=== PATIENT | male | born 1940 | race Caucasian/White ===

== ENCOUNTER 2016-08-10 07:53 | Day surgery (SDC) | payer OTHER, BC ==
[2016-08-09 14:35] VITALS: BMI 30.1
[2016-08-10] MEDS ORDERED: PROPOFOL 20 ML ONE ×4 (08:59)
[2016-08-10 09:50] VITALS: TEMP 97.4
[2016-08-10 12:35] VITALS: BP 119/73; PULSE 69
--- NOTE | 2016-08-11 12:37 | PATH ---
Surgical Pathology Report Patient Name: BHAVNA JACKSON [facility]. Rec. #: [id number] /Age/Gender: 1940 (Age: 76) / M Account: [id number] [facility] Taken: 08/10/2016 Received: 08/10/2016 Reported: 08/11/2016 Physicians: Azam Sandoval D.O. Specimen(s) Received A: BX CECAL POLYP SCAR B: BX CECAL POLYP C: BX RT COLON POLYPS X3 Clinical History History of colon polyp Diverticulosis, polyps, hemorrhoids Final Diagnosis A. COLON, CECAL POLYP SCAR, BIOPSY: COLONIC MUCOSA WITH FOCAL LAMINA PROPRIA FIBROSIS. NO ADENOMATOUS CHANGE IS IDENTIFIED. B. COLON, CECUM, BIOPSY: COLONIC MUCOSA WITH NO PATHOLOGIC CHANGES. NO ADENOMATOUS OR HYPERPLASTIC CHANGES IDENTIFIED. C. COLON, RIGHT, BIOPSY: TUBULAR ADENOMA. Comment: Also see prior specimen [id number]. Electronically Signed Tru Do M.D. Gross Description A. Received in formalin, labeled "biopsy cecal polyp scar " are 2 whitney, irregular portions of soft tissue measuring 0.1 and 0.2 cm. in greatest dimension. The specimens are submitted in toto in one cassette. B. Received in formalin, labeled "biopsy cecal polyp" are 2 whitney, irregular portions of soft tissue measuring 0.1 and 0.3 cm. in greatest dimension. The specimens are submitted in toto in one cassette. C. Received in formalin, labeled "biopsy right colon polyps" are 4 whitney, irregular portions of soft tissue ranging from 0.2-0.3 cm. in greatest dimension. The specimens are submitted in toto in one cassette. /08/10/2016 saudi08/10/2016
== END 2016-08-10 10:40 | disposition home or self-care (01) ==
LOC: JASU-ENDO 07:53
PROVIDERS: ATTEND Internal Medicine Gastroenterology
PROC: 0DBF8ZX Excision of Right Large Intestine, Via Natural or Artificial Opening Endoscopic, Diagnostic (ICD-10-PCS; 2016-08-10)
PROC: 0DBH8ZX Excision of Cecum, Via Natural or Artificial Opening Endoscopic, Diagnostic (ICD-10-PCS; principal; 2016-08-10 09:00)
DX: Z12.11 Encounter for screening for malignant neoplasm of colon (principal); Z83.71 Family history of colonic polyps; K63.5 Polyp of colon; K57.30 Diverticulosis of large intestine without perforation or abscess without bleeding
CPT/HCPCS: 88305-TC

== ENCOUNTER 2018-09-14 09:43 | Day surgery (SDC) | payer OTHER, BC ==
[2018-09-13 12:25] VITALS: BMI 29.2
[2018-09-14 12:28] VITALS: TEMP 97.5
[2018-09-14 13:18] VITALS: BP 127/75; PULSE 69
--- NOTE | 2018-09-15 16:37 | PATH ---
Surgical Pathology Report Patient Name: BHAVNA AJCKSON [facility]. Rec. #: [id number] /Age/Gender: 1940 (Age: 78) / M Account: [id number] Location: [facility] Taken: 09/14/2018 Received: 09/14/2018 Reported: 09/15/2018 Physicians: Azam Sandoval D.O. Specimen(s) Received A: DESCENDING COLON POLYP B: SPLENIC FLEXURE POLYP C: SIGMOID COLON POLYP Clinical History History of colon polyps Postoperative diagnosis: Colon polyps, diverticulosis, internal hemorrhoids Final Diagnosis A. DESCENDING COLON, POLYP, POLYPECTOMY: TUBULAR ADENOMA. B. SPLENIC FLEXURE, POLYP, POLYPECTOMY: TUBULAR ADENOMA. C. SIGMOID COLON, POLYP, BIOPSY: HYPERPLASTIC POLYP. Electronically Signed Sujatha Levine M.D. Gross Description A. Received in formalin, labeled "descending colon polyp" is a whitney, irregular portion of soft tissue measuring 0.3 cm. in greatest dimension. The specimen is submitted in toto in one cassette. B. Received in formalin, labeled "splenic flexure polyp" are 3 whitney, irregular portions of soft tissue ranging from 0.1-0.3 cm. in greatest dimension. The specimens are submitted in toto in one cassette. C. Received in formalin, labeled "sigmoid colon polyp biopsy" is a whitney, irregular portion of soft tissue measuring 0.4 cm. in greatest dimension. The specimen is submitted in toto in one cassette. /09/14/2018 saudi09/14/2018
== END 2018-09-14 13:20 | disposition home or self-care (01) ==
LOC: JASU-SURG 09:43
PROVIDERS: ATTEND Internal Medicine Gastroenterology
PROC: 0DBL8ZX Excision of Transverse Colon, Via Natural or Artificial Opening Endoscopic, Diagnostic (ICD-10-PCS; 2018-09-14)
PROC: 0DBN8ZX Excision of Sigmoid Colon, Via Natural or Artificial Opening Endoscopic, Diagnostic (ICD-10-PCS; 2018-09-14)
PROC: 0DBM8ZX Excision of Descending Colon, Via Natural or Artificial Opening Endoscopic, Diagnostic (ICD-10-PCS; principal; 2018-09-14 09:45)
DX: Z12.11 Encounter for screening for malignant neoplasm of colon (principal); K57.30 Diverticulosis of large intestine without perforation or abscess without bleeding; D12.4 Benign neoplasm of descending colon; D12.5 Benign neoplasm of sigmoid colon; D12.3 Benign neoplasm of transverse colon; K64.8 Other hemorrhoids
CPT/HCPCS: 88305-TC

== ENCOUNTER 2020-03-18 15:28 | Emergency (ER) | payer OTHER, BC ==
[2020-03-18] MEDS ORDERED: DIPHTH,PERTUSS(ACELL),TET 0.5 ML DISP.SYRIN IM ONE ×2 (15:52→15:59)
--- NOTE | 2020-03-18 15:54 | PDOC ---
Rapid Medical Evaluation Time Seen by Provider: 03/18/20 15:47 Medical Evaluation: Allergies Allergy/AdvReac Type Severity Reaction Status Date / Time No Known Allergies Allergy Verified 09/10/15 11:06 03/18/20 15:54 CC: mechanical fall over divider on ground, hit face, no loc , no AC use, no headache Exam: amb, aox3, noted open wound to nasal bridge, vss plan; tdap, facial ct Discharge Disposition - Diagnosis Facial injury - Referrals - Patient Instructions - Post Discharge Activity
[2020-03-18 15:55] VITALS: BP 136/81; PULSE 80; BMI 29.8
--- NOTE | 2020-03-18 17:17 | PDOC ---
History of Present Illness - General Chief Complaint: Injury Stated Complaint: FALL Time Seen by Provider: 03/18/20 15:47 - History of Present Illness Initial Comments: 03/18/20 17:11 79-year-old male presents for evaluation after trip and fall. Patient states he tripped and fell over a cement parking stop hitting his nose on the concrete. No loss of consciousness, post injury nausea vomiting or visual changes. He denies headache. No ear pain. He does have a small laceration on his nose which he controlled with direct pressure and bilateral knee abrasions. Past History - Medical History Allergies/Adverse Reactions: Allergies Allergy/AdvReac Type Severity Reaction Status Date / Time No Known Allergies Allergy Verified 03/18/20 15:55 Home Medications: Ambulatory Orders Amlodipine Besylate [Norvasc -] 10 mg PO HS 09/10/15 Aspirin [Aspirin EC] 81 mg PO HS 09/10/15 Atorvastatin Ca [Lipitor] 20 mg PO HS 09/10/15 Multivitamin with Iron [Daily Yordan with Iron] 1 each PO DAILY 09/10/15 Vit A/Vit C/Vit E/Zinc/Copper [Preservision Tablet] 1 each PO DAILY 09/10/15 Anemia: No Asthma: No Cancer: No Cardiac Disorders: Yes (HEART MURMUR) CVA: No COPD: No CHF: No Dementia: No Diabetes: No GI Disorders: Yes (COLON POLYPS,TUBULAR ADENOMAS,DIVERTICULOSIS) Disorders: No HTN: Yes Hypercholesterolemia: Yes Liver Disease: No Seizures: No Thyroid Disease: No - Surgical History Abdominal Surgery: No Appendectomy: No Cardiac Surgery: No Cholecystectomy: No Lung Surgery: No Neurologic Surgery: No Orthopedic Surgery: Yes (R KNEE ARTHROSCOPY,L KNEE REPLACEMENT) - Psycho-Social/Smoking History Smoking History: Never smoked Have you smoked in the past 12 months: Yes Cigars Per Day: 1 'Breaking Loose' booklet given: 09/14/18 Review of Systems - Review of Systems HEENTM: No: Blurred Vision, Recent change in vision Cardiac (ROS): No: Lightheadedness ABD/GI: No: Nausea, Vomiting Neurological: No: Headache *Physical Exam - Vital Signs Last Vital Signs Temp Pulse Resp BP Pulse Ox 80 18 136/81 99 03/18/20 15:53 03/18/20 15:53 03/18/20 15:53 03/18/20 15:53 - Physical Exam General Appearance: Yes: Appropriately Dressed. No: Apparent Distress HEENT: positive: Symmetrical, Other (There is a dermal avulsion flap on the superior part of the bridge of the nose. No associated tenderness no crepitation or step-off) Neck: positive: Supple. negative: Tender Respiratory/Chest: positive: Normal Breath Sounds. negative: Respiratory Distress Cardiovascular: positive: Regular Rate Gastrointestinal/Abdominal: negative: Tender Musculoskeletal: positive: Normal Inspection, Other (Superficial abrasions bilateral knees) Extremity: positive: Normal Inspection Integumentary: positive: Normal Color, Dry, Warm Neurologic: positive: rest room matron II-XII NML intact, Fully Oriented, Alert, Normal Mood/Affect, Normal Response, Other. negative: Sensory Deficit ED Treatment Course - RADIOLOGY Radiology Studies Ordered: Category Date Time Status HEAD CT WITHOUT CONTRAST [CT] Stat CT Scan 03/18/20 15:57 Completed - Medications Given in the ED: ED Medications Discontinued Medications Generic Name Dose Route Start Last Admin Trade Name Freq PRN Reason Stop Dose Admin Diphtheria/Tetanus/Acell Pertussis 0.5 ml 03/18/20 15:52 03/18/20 16:07 Boostrix - IM 03/18/20 15:53 0.5 ml .ONCE ONE Administration Medical Decision Making - Medical Decision Making 03/18/20 17:17 Edges were approximated with Dermabond prior to approximation with Dermabond the edges of the wound at the bridge of nose was copiously irrigated with normal saline. This was tolerated well CAT scan was reviewed no fracture of the facial bones no intracranial abnormalities acutely. Follow-up with primary care physician I have reviewed the pathophysiology with the patient. They are in agreement with the treatment plan all questions were answered to their satisfaction. Understanding for follow-up without fail was also conveyed to the patient. Aganader montgomery they are in agreement. Discharge - Discharge Information Problems reviewed: Yes Clinical Impression/Diagnosis: Facial injury Condition: Stable Disposition: HOME - Admission No - Follow up/Referral Referrals: Evan Randhawa MD [Primary Care Provider] - - Patient Discharge Instructions Additional Instructions: Please leave the area of the laceration clean and dry for the next 48 hours. After 48 hours you may wash the area gently with soap and water. Do not apply any ointments such as bacitracin or Neosporin. In about 7 to 10 days the glue will flake off please do not peel it. Wound check needs to be done in 48 hours. You may take Tylenol as directed for any discomfort aches and pains you experience from the fall. Return to the emergency room for worsening symptoms and without fail follow-up with your primary care physician in 1 to 2 days for recheck. If you cannot get in with your primary care physician he can return to the ER in 48 hours for recheck. - Post Discharge Activity
== END 2020-03-18 17:42 | disposition home or self-care (01) ==
LOC: JERFT 15:28
PROC: 3E0234Z Introduction of Serum, Toxoid and Vaccine into Muscle, Percutaneous Approach (ICD-10-PCS; principal; 2020-03-18)
DX: S09.93XA Unspecified injury of face, initial encounter (principal)
CPT/HCPCS: 70450-TC; 70486-TC; 90715; 99284-25